=== PATIENT | male | born 1950 | race Caucasian/White ===

== ENCOUNTER → 2016-12-23 | Outpatient (CLI) | payer OTHER ==
--- NOTE | 2016-12-23 10:55 | DX ---
Lumbar Spine, 2 standing views History: Postop followup Comparison: September 16, 2016 Findings: A long lumbosacral posterior fusion construct between L1 and S1 is in stable position and a ssociated with a stable mild lumbar dextroscoliosis. On the lateral view a mild retrolisthesis at L3- L4 is stable. Interbody bone plugs between L2 and S1 remain in excellent stable position without evid ence of compression or migration. There is no evidence for hardware fracture, loosening or uncoupling . A spinous process clamp at L2-L3 remains in stable position. Impression: Excellent stable postoperative alignment x 4 months.
== END ==
LOC: FIMAGING 08:56
PROVIDERS: ATTEND Physician Assistant Surgical
DX: M43.26 Fusion of spine, lumbar region (principal)

== ENCOUNTER → 2017-07-13 | Outpatient (CLI) | payer OTHER | LOC: FIMAGING 08:51 | PROVIDERS: ATTEND Physician Assistant Surgical | DX: M54.9 Dorsalgia, unspecified (principal); Z98.1 Arthrodesis status ==

== ENCOUNTER → 2018-07-13 | Outpatient (CLI) | payer OTHER, MEDICARE | LOC: FIMAGING 09:22 → EDSTATUS 09:23 | PROVIDERS: ATTEND Physician Assistant Surgical | DX: M43.16 Spondylolisthesis, lumbar region (principal) ==